=== PATIENT | male | born 1955 | race Two or more races ===

== ENCOUNTER 2022-03-15 21:48 | Emergency (ER) | payer OTHER ==
[~2022-03-15] VITALS: Ht 172.7 cm; Wt 75.7 kg
[2022-03-15 22:17] VITALS: BP 157/100
--- NOTE | 2022-03-15 23:21 | NUR ---
COVID SWAB DONE
--- NOTE | 2022-03-16 00:15 | NUR ---
d/c'd to [employer] in custody in stable condition
== END 2022-03-16 01:41 ==
LOC: ER 21:55
DX: Z02.89 Encounter for other administrative examinations (principal); Z20.822 Contact with and (suspected) exposure to COVID-19; Z86.16 Personal history of COVID-19; I10 Essential (primary) hypertension
CPT/HCPCS: 99283; 87426; C9803